=== PATIENT | female | born 1950 | race Caucasian/White ===

== ENCOUNTER 2017-05-15 04:34 | Emergency (ER) | payer OTHER, BC ==
[2017-05-15] MEDS ORDERED: IPRATROPIUM/ALBUTEROL 3 ML DEYVIAL ONE (04:35)
[2017-05-15] MEDS ORDERED: NS 1,000 ML IV ONE (04:41)
[2017-05-15] MEDS ORDERED: IPRATROPIUM/ALBUTEROL 3 ML DEYVIAL IH ONE (04:42)
[2017-05-15] MEDS ORDERED: LORazepam 2 MG/ML INJ IVP ONE (04:42)
--- NOTE | 2017-05-15 04:46 | EDPHY ---
H & P HPI/ROS: HPI CHIEF COMPLAINT: shortness of breath HISTORY OF PRESENT ILLNESS: This patient very pleasant 67-year-old female she denies having any significant medical history except for asthma a possible history of panic attacks. She has not take any daily medications, she does not smoke she presents emergency room stating that around 2 o'clock in the morning she woke up suddenly feeling short of breath. Gasping for air. Cedar she could not breathe. She states that she slowly throughout the next 2 hours took calming breaths and felt better. She did use her old albuterol inhaler. She states she has a history of asthma versus panic attacks. She also tells me that she saw an material combiner and was diagnosed with possible throat asthma. She denies any cardiac history specifically denies history of heart attack or stroke. No history of DVT or PE. She states that she decided come the emergency room this morning due to retired she returned to go back to sleep she would slightly fall asleep and then wake up gasping for air again. Of note no recent illness, does not have a productive cough, no wheezing. She decided come the emergency room if she thought she was having a asthma attack. Upon arrival here in emergency room she is anxious appearing, her pulse ox 100% on room air there is no wheezing. She has clear lung sounds. Good air movement. She denies any chest pain, or pleuritic pain. Patient has had a nonproductive dry cough. Additionally has been sanding wood in the house. Past Medical History:"Asthma" "panic attacks" Past Surgical History: Denies recent surgery Social History: Denies daily use of drugs alcohol tobacco products. Family History: Noncontributory. ROS REVIEW OF SYSTEMS: A comprehensive 10 point review of systems is otherwise negative aside from elements mentioned in the history of present illness. Exam Constitutional anxious appearing, triage nursing summary reviewed, vital signs reviewed, awake/alert. Vital signs reviewed at triage. Eyes normal conjunctivae and sclera, EOMI, PERRLA. HENT normal inspection, atraumatic, moist mucus membranes, no epistaxis, neck supple/ no meningismus, no raccoon eyes. Respiratory clear to auscultation bilaterally, normal breath sounds, no respiratory distress, no wheezing. Cardiovascular rate normal, regular rhythm, no murmur, no edema, distal pulses normal. Gastrointestinal soft, non-tender, no rebound, no guarding, normal bowel sounds, no distension, no pulsatile mass. Genitourinary no CVA tenderness. Musculoskeletal no midline vertebral tenderness, full range of motion, no calf swelling, no tenderness of extremities, no meningismus, good pulses, neurovascularly intact. Skin pink, warm, & dry, no rash, skin atraumatic. Neurologic awake, alert and oriented x 3, AAOx3, moves all 4 extremities equally, motor intact, sensory intact, CN II-XII intact, normal cerebellar, normal vision, normal speech. Psychiatric anxious, normal mood/affect. Heme/Lymph/Immune no lymphadenopathy. Differential Diagnosis: Includes but is not limited to in a particular order acute anxiety attack, panic attack, pneumothorax, acute coronary syndrome, pulmonary embolism, asthma Medical Decision Making: Here in the emergency room this patient appears anxious. Clear lung sounds good air movement with a pulse ox of 100% on room air. She is 67 years of age. She appears to may be having anxiety attack. She be placed on full surveillance monitor. Obtain an EKG. She will have an IV established. I will medicate her with Ativan 0.5mg to see if this improves her symptoms. Will re-evaluate. Chest x-ray two view. Re-evaluation: EKG interpretation by me on record in [facility] system. Impression time of EKG 4:46 a.m., this is sinus rhythm rate of 85 Q-waves noted V1 V2 V3. Otherwise nonischemic unremarkable EKG. No old EKG to compare this to. ED x-ray chest two view: Negative for acute cardiopulmonary disease. Image interpreted by myself. 0506AM: At this time patient is completing a DuoNeb breathing treatment. Also received 0.5 mg IV Ativan. Will reassess shortly. 0523AM: Patient is feeling slightly better after Ativan IV and DuoNeb breathing treatment. She does have a bronchitic sounding cough on exam. No wheezing. Clear lung sounds. Blood pressure is noted to be elevated. She has no chest pain. I did re-evaluate this time she is feeling slightly better. Her D-dimer is positive. In the setting that she has shortness of breath clear lung sounds a positive D-dimer I will proceed with CT angiogram of her chest. She has agreed for this test. Positive D-dimer in the setting of shortness of breath will obtain CT angiogram chest. 0556AM: CT angiogram of the chest reported to me by Dr. Sosa. No pulmonary embolism. Unremarkable CT chest CT. 0605AM: Re-evaluation this time patient resting comfortably. Reexamine her lungs are clear. No wheezing. She does have a bronchitic cough but she does tell me that she feels better after DuoNeb breathing treatment she denies any significant shortness of breath or chest pain at this time. States she is breathing better. Source: Patient, Family Constitutional: Initial Vital Signs Temperature (C) 36.5 C 05/15/17 04:41 Heart Rate 88 05/15/17 04:41 Respiratory Rate 18 05/15/17 04:41 Blood Pressure 176/111 H 05/15/17 04:41 O2 Sat (%) 100 05/15/17 04:41 O2 Delivery Mode Room Air Allergies/Adverse Reactions: No Known Allergies Allergy (Unverified 12/04/15 11:14) Home Medications: Medication Instructions Recorded Albuterol [Proventil Inhaler HFA 1 - 2 puffs IH Q4H #1 mdi 05/15/17 (*)] Tylenol 05/15/17 predniSONE 60 mg PO DAILY #15 tab 05/15/17 Medical Decision Making - Data Points Laboratory Results: Laboratory Results 05/15/17 04:50 05/15/17 04:50 05/15/17 05/15/17 05/15/17 04:50 04:50 04:50 WBC 6.81 10^3/uL 10^3/uL (3.80-9.50) RBC 4.12 10^6/uL L 10^6/uL (4.18-5.33) Hgb 13.1 g/dL g/dL (12.6-16.3) Hct 38.5 % % (38.0-47.0) MCV 93.4 fL fL (81.5-99.8) MCH 31.8 pg pg (27.9-34.1) MCHC 34.0 g/dL g/dL (32.4-36.7) RDW 12.4 % % (11.5-15.2) Plt Count 198 10^3/uL 10^3/uL (150-400) MPV 11.3 fL fL (8.7-11.7) Neut % (Auto) 63.7 % % (39.3-74.2) Lymph % (Auto) 23.3 % % (15.0-45.0) Schleicher % (Auto) 7.3 % % (4.5-13.0) Eos % (Auto) 4.8 % % (0.6-7.6) Baso % (Auto) 0.6 % % (0.3-1.7) Nucleat RBC Rel Count 0.0 % % (0.0-0.2) Absolute Neuts (auto) 4.33 10^3/uL 10^3/uL (1.70-6.50) Absolute Lymphs (auto) 1.59 10^3/uL 10^3/uL (1.00-3.00) Absolute Monos (auto) 0.50 10^3/uL 10^3/uL (0.30-0.80) Absolute Eos (auto) 0.33 10^3/uL 10^3/uL (0.03-0.40) Absolute Basos (auto) 0.04 10^3/uL 10^3/uL (0.02-0.10) Absolute Nucleated RBC 0.00 10^3/uL 10^3/uL (0-0.01) Immature Gran % 0.3 % % (0.0-1.1) Immature Gran # 0.02 10^3/uL 10^3/uL (0.00-0.10) D-Dimer 0.68 ug/mLFEU H ug/mLFEU (0.00-0.50) Sodium 138 mEq/L mEq/L (134-144) Potassium 3.8 mEq/L mEq/L (3.5-5.2) Chloride 105 mEq/L mEq/L (97-110) Carbon Dioxide 22 mEq/l mEq/l (22-31) Anion Gap 11 mEq/L mEq/L (8-16) BUN 13 mg/dL mg/dL (7-23) Creatinine 0.7 mg/dL mg/dL (0.6-1.0) Estimated GFR > 60 Glucose 99 mg/dL mg/dL (70-100) Calcium 10.3 mg/dL mg/dL (8.5-10.4) Magnesium 2.1 mg/dL mg/dL (1.6-2.3) Total Bilirubin 0.7 mg/dL mg/dL (0.1-1.4) Conjugated Bilirubin 0.2 mg/dL mg/dL (0.0-0.5) Unconjugated Bilirubin 0.5 mg/dL mg/dL (0.0-1.1) AST 107 IU/L H IU/L (14-46) ALT 80 IU/L H IU/L (9-52) Alkaline Phosphatase 93 IU/L IU/L (38-126) Troponin I < 0.012 ng/mL ng/mL (0.000-0.034) NT-Pro-B Natriuret Pep 185 pg/mL H pg/mL (0-125) Total Protein 7.4 g/dL g/dL (6.3-8.2) Albumin 4.6 g/dL g/dL (3.5-5.0) Medications Given: Discontinued Medications Albuterol/Ipratropium (Duoneb) 3 ml IH EDNOW ONE Stop: 05/15/17 04:43 Last Admin: 05/15/17 04:45 Dose: 3 ml Sodium Chloride (Ns) 1,000 mls @ 0 mls/hr IV EDNOW ONE; Wide Open PRN Reason: Protocol Stop: 05/15/17 04:42 Last Admin: 05/15/17 04:48 Dose: 1,000 mls Lorazepam (Ativan Injection) 0.5 mg IVP EDNOW ONE Stop: 05/15/17 04:43 Last Admin: 05/15/17 04:48 Dose: 0.5 mg Methylprednisolone Sodium Succinate (Solu-Medrol) 125 mg IVP EDNOW ONE Stop: 05/15/17 06:05 Last Admin: 05/15/17 06:07 Dose: 125 mg Departure - Departure Disposition: Home, Routine, Self-Care Clinical Impression: Cough Reactive airway disease Qualifiers: Asthma severity: unspecified severity Asthma complication type: with acute exacerbation Qualified Code(s): J45.901 - Unspecified asthma with (acute) exacerbation Condition: Good Instructions: Reactive Airways Disease (ED), Anxiety (ED), Acute Cough (ED) Additional Instructions: 1. Stay well-hydrated drink lots of fluids. 2. Return to the emergency room if you have worsening symptoms includes shortness of breath he cannot breathe to have pain review not feel well. 3. Please additionally follow up with her primary care doctor. Referrals: Dona Myrick MD [Primary Care Provider] - As per Instructions Prescriptions: Albuterol [Proventil Inhaler HFA (*)] 1 - 2 puffs IH Q4H #1 mdi predniSONE 60 mg PO DAILY #15 tab
--- NOTE | 2017-05-15 04:49 | CPEKG ---
Heart Rate: 85 RR Interval: 706 P-R Interval: 148 QRSD Interval: 76 QT Interval: 388 QTC Interval: 462 P [place]: 62 QRS [place]: -4 T Wave [place]: 52 EKG Severity - BORDERLINE ECG - EKG Impression: SINUS RHYTHM EKG Impression: CONSIDER ANTERIOR INFARCT Electronically Signed By: Tim Kaminski 22-May-2017 07:40:22
[2017-05-15 05:03] LABS: % IMMATURE GRANULYOCYTES 0.3 % (0.0-1.1); ABSOLUTE IMMATURE GRANULOCYTES 0.02 10^3/uL (0.00-0.10); ADD DIFF? NO; ADD MORPH? NO; ADD SCAN? NO; ATYPICAL LYMPHOCYTE FLAG 0 (0-99); FRAGMENT RBC FLAG 0 (0-99); HEMATOCRIT 38.5 % (38.0-47.0); HEMOGLOBIN 13.1 g/dL (12.6-16.3); LEFT SHIFT FLG 0 (0-99); LIPEMIA HEMOLYSIS FLAG 90 (0-99); MEAN CELL HEMOGLOBIN 31.8 pg (27.9-34.1); MEAN CELL VOLUME 93.4 fL (81.5-99.8); MEAN PLATELET VOLUME 11.3 fL (8.7-11.7); PLATELET CLUMPS FLAG 10 (0-99); PLATELET COUNT 198 10^3/uL (150-400); RED BLOOD CELL COUNT 4.12 10^6/uL (4.18-5.33); RED CELL DISTRIBUTION WIDTH 12.4 % (11.5-15.2)
[2017-05-15 05:17] LABS: ALANINE AMINOTRANSFERASE 80 IU/L (9-52); ALBUMIN 4.6 g/dL (3.5-5.0); ALKALINE PHOSPHATASE 93 IU/L (38-126); ANION GAP 11 mEq/L (8-16); ASPARTATE AMINOTRANSFERASE 107 IU/L (14-46); BILIRUBIN,TOTAL 0.7 mg/dL (0.1-1.4); BILIRUBIN-CONJUGATED 0.2 mg/dL (0.0-0.5); BILIRUBIN-UNCONJUGATED 0.5 mg/dL (0.0-1.1); CALCIUM 10.3 mg/dL (8.5-10.4); CARBON DIOXIDE 22 mEq/l (22-31); CHLORIDE 105 mEq/L (97-110); CREATININE 0.7 mg/dL (0.6-1.0); GLOMERULAR FILTRATION RATE > 60; GLUCOSE 99 mg/dL (70-100); MAGNESIUM 2.1 mg/dL (1.6-2.3); POTASSIUM 3.8 mEq/L (3.5-5.2); SODIUM 138 mEq/L (134-144); TOTAL PROTEIN 7.4 g/dL (6.3-8.2)
[2017-05-15] MEDS ORDERED: IOPAMIDOL (ISOVUE 370) 100 ML BTL IV ONE (05:25)
[2017-05-15 05:28] LABS: TROPONIN I < 0.012 ng/mL (0.000-0.034)
[2017-05-15 05:42] VITALS: RESP 16
[2017-05-15] MEDS ORDERED: methylPREDNISolone SOD SUCC 125 MG/2 ML VIAL IVP ONE (06:04)
[2017-05-15] MEDS ORDERED: methylPREDNISolone SOD SUCC 125 MG/2 ML VIAL ONE (06:05)
[2017-05-15 06:11] VITALS: BP 162/79; PULSE 78; TEMP 97.9; O2SAT 92
== END 2017-05-15 07:11 | disposition home or self-care (01) ==
DX: J45.901 Unspecified asthma with (acute) exacerbation (principal); E86.9 Volume depletion, unspecified
CPT/HCPCS: 71020; 71275; 93005; 96374; 96375; 99285; J2060; Q9967

== ENCOUNTER → 2017-05-22 | Outpatient (CLI) | payer OTHER, BC | LOC: CIMAGING 10:22 | PROVIDERS: ATTEND Family Medicine | DX: Z12.31 Encounter for screening mammogram for malignant neoplasm of breast (principal); Z80.3 Family history of malignant neoplasm of breast | CPT/HCPCS: G0202 ==